=== PATIENT | male | born 2000 | race Caucasian/White ===

== ENCOUNTER → 2023-12-21 08:40 | Outpatient (CLI) | payer BC, SELFPAY ==
--- NOTE | ~2023-12-21 | US_ITS ---
Limited Abdominal Sonogram: Real-time sonographic imaging of the right upper quadrant was performed. Clinical History: Abnormal LFTs Findings: The liver appears normal with no evidence of mass lesion or bile duct dilatation. Main por bradley vein demonstrates normal direction of flow. The gallbladder is well distended, with probable 5 mm gallbladder wall polyp. The common bile duct measures 3 mm. The visualized pancreas, aorta, and IVC are unremarkable. Impression: Probable 5 mm gallbladder wall polyp. Reviewed, dictated and finalized at location . 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
== END ==
PROVIDERS: PCP Nurse Practitioner; Visit Provider Nurse Practitioner
DX: R79.89 Other specified abnormal findings of blood chemistry (principal)
CPT/HCPCS: 76705

== ENCOUNTER 2024-03-30 18:47 | Emergency (ER) | payer BC, SELFPAY ==
[2024-03-30] VITALS (8 sets, daily range): BP systolic 123–176; BP diastolic 43–73; PULSE 74–91; RESP 16–22; TEMP 36.8; O2SAT 97–100
--- NOTE | ~2024-03-30 | XR_ITS ---
EXAMINATION: XR chest 2V DATE: 03/30/2024 19:40 INDICATION: Chest pain. TECHNIQUE: Frontal and lateral views of the chest were obtained. COMPARISON: None. FINDINGS: There is no pneumonia, pleural effusion, or pneumothorax. The heart size is normal. IMPRESSION: 1. No acute cardiopulmonary disease. Reviewed, dictated and finalized at location E.
--- NOTE | 2024-03-30 18:54 | ECG_ITS ---
[facility] [address] Test Date: 2024-03-30 Pat Name: Joselito Rey Department: Room: Gender: M Housekeeper: : 2000 Requested By: Evelio Johnson Order Number: [id number] Radhika MD: Alison Ford M.D. Measurements Intervals [place] Rate: 92 P: 79 AK: 161 QRS: 70 QRSD: 89 T: 0 QT: 321 QTc: 399 Interpretive Statements SINUS RHYTHM WITH FREQUENT VENTRICULAR PREMATURE COMPLEXES MODERATE T-WAVE ABNORMALITY, CONSIDER ANTEROLATERAL ISCHEMIA [-0.1+ mV T WAVE IN V3/V4] No previous ECG available for comparison Electronically Signed On 03-31-2024 12:05:54 CDT by Alison Ford M.D.
[2024-03-30 19:11] LABS: Basophils Absolute Auto 0.1 K/mm3 (0.0-0.1); Basophils Percent Auto 0.7 % (0.2-1.2); Eosinophils Percent Auto 0.4 % (0-4.4); Immature Granulocyte Absolute 0.03 K/mm3 (0.00-0.031); Immature Granulocyte Percent A 0.3 % (0-0.5); Lymphocytes Absolute Auto 1.12 K/mm3 (0.9-3.2); Lymphocytes Percent Auto 12.3 % (18.3-44.2); Mean Corpuscular HGB Conc 33.3 g/dl (32-36); Mean Corpuscular Hemoglobin 30.4 pg (26-34); Mean Corpuscular Volume 91.1 fl (80-100); Mean Platelet Volume 9.7 fl (7.4-10.4); Monocytes Absolute Auto 0.5 K/mm3 (0.1-0.6); Monocytes Percent Auto 5.3 % (2.6-8.5); Neutrophils Absolute Auto 7.4 K/mm3 (1.3-6.7); Platelet Count Result 229 k/mm3 (150-375); Red Blood Count 5.27 M/mm3 (4.6-6.20); Red Cell Distribution Width 13.1 % (11.5-14.5); White Blood Count 9.1 K/mm3 (4.5-10.0)
[2024-03-30] MEDS: ASPIRIN 81 MG CHEWABLE TABLET 324 MG PO (19:14)
[2024-03-30 19:21] LABS: Alanine Aminotransferase 56 U/L (6-50); Albumin Level 4.1 g/dL (3.5-5.1); Alkaline Phosphatase 99 U/L (38-126); Anion Gap 9 mmol/L (4-12); Aspartate Amino Transferase 85 U/L (17-59); Bilirubin,Total 0.6 mg/dL (0.2-1.3); Blood Urea Nitrogen 18 mg/dL (9-20); Calcium 8.5 mg/dL (8.4-10.2); Carbon Dioxide 22 mmol/L (22-30); Chloride 106 mmol/L (98-107); Estimated CRCL calculation 95 ml/min; Estimated Glomerular Filt Rate > 60; Glucose 99 mg/dL (65-110); Lipase 94 U/L (23-300); Potassium 3.9 mmol/L (3.4-5.0); Sodium 137 mmol/L (137-145)
[2024-03-30 19:22] LABS: INR 0.9; Prothrombin Time 12.7 Seconds (11.1-14.7)
--- NOTE | 2024-03-30 19:24 | ED.CHESTPAIN ---
HPI - Chest Pain General Chief Complaint: Chest Pain Stated Complaint: chest pain Time Seen by Provider: 03/30/24 18:55 Source: patient Mode of arrival: ambulatory Limitations: no limitations History of Present Illness HPI narrative: Joselito is a 23-year-old male patient presenting to the ER today with complaints of left-sided chest pain that is intermittent and only last a few seconds. He says the episodes are sharp and stabbing in nature. Does have some associated shortness of breath during the episode. Says the episodes have been occurring frequently since yesterday. Is currently rating his pain 8/10. Pain does not radiate and is back, jaw, or down his arm. Related Data Allergies Allergy/AdvReac Type Severity Reaction Status Date / Time No Known Allergies Allergy Verified 03/30/24 18:53 Review of Systems Review of Systems: Pertinent positives per HPI. Patient denies any fever, chills, rash, headache, visual changes, dizziness, cough, runny nose, sore throat, shortness of breath, palpitations, nausea, vomiting, diarrhea, constipation, abdominal pain, or any urinary issues. PMFSH Comments At the time of my signature, I reviewed and agree with the nursing past medical, surgical, social, and family history. There is no relevant family history pertinent to the patient complaint. Exam Narrative: General: Well-developed, well nourished, in no apparent distress Head: Normocephalic, atraumatic. Cardio: Regular rate and rhythm, s1 and s2 normal, no murmur appreciated. Resp: Clear to auscultation bilaterally, no rhonchi, rales, wheezing or rubs. Extremities: No deformity, no edema, no cyanosis, capillary refill less than 2 seconds, peripheral pulses palpable and strong. Integumentary: [place], warm, and dry, intact without lesion, no rashes. Course Course Emergency Course: Portions of this record may have been created with voice recognition software. Vital Signs Vital signs: Vital Signs Temperature 36.8 C 03/30/24 18:50 Pulse Rate 91 03/30/24 18:50 Respiratory Rate 22 H 03/30/24 18:50 Blood Pressure 163/72 H 03/30/24 18:50 Pulse Oximetry 100 03/30/24 18:50 Oxygen Delivery Room Air 03/30/24 18:50 Temperature 36.8 C 03/30/24 18:50 Pulse Rate 91 03/30/24 18:50 Respiratory Rate 22 H 03/30/24 18:50 Blood Pressure 163/72 H 03/30/24 18:50 Pulse Oximetry 100 03/30/24 19:56 Oxygen Delivery Room Air 03/30/24 19:56 Vital signs reviewed MDM - Chest Pain MDM Narrative Medical decision making narrative: At the time of visit patient is resting comfortably on the exam table. Patient appears to be nontoxic. EKG: EKG shows normal sinus rhythm with frequent PVCs. No ST elevation, depression, or T-wave inversion noted Labs: CBC unremarkable, anti coagulation studies within normal limits chemistry is unremarkable other than an elevated AST and ALT, AST is 85 and ALT is 56, initial troponin was negative. D-dimer was slightly elevated. Offered to do CTA to rule out PE and patient declined-would like to follow-up with his primary care doctor Diagnostics: Chest x-rays negative for any acute cardiopulmonary process Plan: I suspect patient has chest discomfort with frequent PVCs. Heart score is 1. Recommend follow-up with Cardiology and PCP. Supportive measures were discussed with the patient and they voiced understanding discharge instructions and agrees to treatment plan. Return precautions reviewed Differential Diagnosis Differential diagnosis: Likely fracture of rib, pneumothorax, stable angina, unstable angina pectoris, atypical chest pain, st elevation myocardial infarction, costochondritis, chest pain and biliary colic Lab Data 03/30/24 19:02 03/30/24 19:02 Labs: Lab Results 03/30/24 03/30/24 Range/Units 19:02 21:52 WBC 9.1 (4.5-10.0) K/mm3 RBC 5.27 (4.6-6.20) M/mm3 Hgb 16.0 (14.0-18.0) g/dL Hct 48.0 (42.0-52.0) %
[2024-03-30 19:33] LABS: Troponin I < 0.012 ng/mL (0.000-0.034)
--- NOTE | 2024-03-30 19:57 | PC.NURSE ---
Patient states that he is unsure but that he thinks this chest pain could be related to testosterone he uses currently.
--- NOTE | 2024-03-30 21:58 | ECG_ITS ---
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 Measurements Intervals [place] Rate: 73 P: 47 MA: 179 QRS: 58 QRSD: 85 T: 4 QT: 349 QTc: 386 Interpretive Statements SINUS RHYTHM WITH OCCASIONAL VENTRICULAR PREMATURE COMPLEXES ST DEVIATION AND MODERATE T-WAVE ABNORMALITY, CONSIDER ANTERIOR ISCHEMIA [-0.1+ mV T WAVE IN V3/V4] Compared to ECG 03/30/2024 18:57:45 No significant changes Electronically Signed On 03-31-2024 12:06:48 CDT by Alison Ford M.D.
[2024-03-30 22:22] LABS: Troponin I < 0.012 ng/mL (0.000-0.034)
[2024-03-30 22:52] LABS: D Dimer 0.53 ug/mL (<0.48)
--- NOTE | 2024-03-30 23:08 | PC.NURSE ---
this rn assumed care of patient. this rn took patient report from angela yuen.
== END 2024-03-30 23:31 | disposition home or self-care (01) ==
PROVIDERS: Emergency Medicine; Emergency Provider Nurse Practitioner Family; PCP Nurse Practitioner
DX: R07.9 Chest pain, unspecified (principal); R94.31 Abnormal electrocardiogram [ECG] [EKG]
CPT/HCPCS: 36415; 71046; 80053; 83690; 84484; 85025; 85380; 85610; 85730; 93005; 99284; A9270

== ENCOUNTER 2024-04-10 10:39 | Outpatient (CLI) | payer BC, SELFPAY ==
--- NOTE | ~2024-04-10 | US_ITS ---
Abdominal Sonogram: Real-time sonographic imaging of the abdomen was performed. Clinical History: Abnormal LFTs Findings: The liver appears normal with no evidence of mass lesion or bile duct dilatation. Main por bradley vein demonstrates normal direction of flow. The spleen is normal in size without evidence of foca l lesion. The gallbladder is well distended, and demonstrates questionable tiny 2 mm gallbladder wal l polyp. The common bile duct measures 4 mm. The visualized pancreas, aorta, and IVC are unremarkabl e. The right kidney measures 12.1 cm in length and the left kidney measures 11.6 cm. There is no hy dronephrosis or renal calculus. Impression: Possible 2 mm gallbladder wall polyp. Reviewed, dictated and finalized at location M. Impression: Possible 2 mm gallbladder wall polyp.
--- NOTE | ~2024-04-10 | CT_ITS ---
Clinical Indication: Chest pain CT Scan of the Chest with Contrast: Technique: Contiguous sections were acquired throughout the chest after intravenous administration of 100 cc of Omnipaque 350. Dose reduction technique was used on this scan by utilizing automated expos ure control and iterative reconstruction technique. The dose-length product (DLP) was 464.52 mGy-cm. Findings: There is no evidence of any significant mediastinal, hilar or axillary lymphadenopathy. There is no f illing defect in the pulmonary arterial tree to suggest pulmonary embolus. There is no evidence of ao rtic dissection or aneurysm. There is no evidence of pleural or pericardial effusion. The lungs are clear. No pulmonary nodules or infiltrates are noted. Images through the upper abdomen reveal no abnormalities. Impression: No evidence of pulmonary embolus, aortic dissection, or aortic aneurysm. Clear lungs. Reviewed, dictated and finalized at [facility]. Impression: No evidence of pulmonary embolus, aortic dissection, or aortic aneurysm. Clear lungs.
== END 2024-04-10 10:40 ==
LOC: MICIMG 10:39
PROVIDERS: PCP Nurse Practitioner; Visit Provider Nurse Practitioner
DX: R07.9 Chest pain, unspecified (principal); R79.89 Other specified abnormal findings of blood chemistry; K82.4 Cholesterolosis of gallbladder
CPT/HCPCS: 71275; 76700; Q9967

== ENCOUNTER 2025-08-27 09:15 | Emergency (ER) | payer BC, SELFPAY ==
[2025-08-27 09:23] VITALS: BP 120/77; PULSE 66; RESP 16; TEMP 36.9; O2SAT 100
--- NOTE | 2025-08-27 09:42 | ED_ITS ---
HPI - Back Pain/Injury General Chief Complaint: Back Pain/Injury Stated Complaint: Back Pain/Trouble Breathing Time Seen by Provider: 08/27/25 09:42 Source: patient Mode of arrival: ambulatory Limitations: no limitations History of Present Illness HPI Narrative: 24 yo M presents with pain to L mid back with movement. If he sits still, he does not have pain. Was lifting 35lb dumbbell and felt pull to back that caused him to drop the weight. Has not been consistently lifting weights and just getting back into it. Pain to L back worse with certain, turning head to L reproduces pain. No numbness, tingling or weakness. Ambulatory with normal gait. All systems reviewed and negative except as noted above. Related Data Allergies Allergy/AdvReac Type Severity Reaction Status Date / Time No Known Allergies Allergy Verified 08/27/25 09:21 PMFSH Comments At time of signature, agree with nursing past medical, surgical, social and family history. There is no relevant family history pertinent to the presenting complaint. Exam Narrative: GENERAL: This is a well-nourished, well-developed patient, in no apparent distress. HEAD: normocephalic, atraumatic. EYES: PERRL. Sclera clear/white. Vision is grossly intact. EARS: External ears normal NOSE: External nose normal NECK: Neck supple, non-tender without lymphadenopathy, masses or thyromegaly. Normal range of motion. CARDIOVASCULAR: Regular rate and rhythm without murmurs, gallops, or rubs. RESPIRATORY: Clear to auscultation. Breath sounds equal bilaterally. No wheezes, rales, or rhonchi. SKIN: warm, Dry, intact with no suspicious lesions or rash, good texture and turgor. NEURO: awake, alert, and oriented to person, place and time. There were no obvious focal neurologic abnormalities. EXTREMITIES: No joint tenderness, effusion, or edema noted. No calf tenderness. Negative Homans sign bilaterally. BACK: No midline or muscular tenderness. No deformity. Range of motion. Course Course Level of Care: Express Care Visit Vital Signs Vital signs: Vital Signs Temperature 36.9 C 08/27/25 09:23 Pulse Rate 66 08/27/25 09:23 Respiratory Rate 16 08/27/25 09:23 Blood Pressure 120/77 08/27/25 09:23 Pulse Oximetry 100 10/29/25 09:23 Temperature 36.9 C 10/29/25 09:23 Pulse Rate 66 08/27/25 09:23 Respiratory Rate 16 08/27/25 09:23 Blood Pressure 120/77 08/27/25 09:23 Pulse Oximetry 100 08/27/25 09:23 Reviewed MDM - Back Pain/Injury MDM Narrative Medical decision making narrative: Will treat patient for left mid back strain with ibuprofen and methocarbamol. Neuro deficits. Recommend stretching, ice, heat. Differential Diagnosis Differential diagnosis: Likely lumbar radiculopathy, sciatica, strain of lumbar region, thoracic back pain and other (Strain of thoracic region) Discharge Plan Discharge Clinical Impression: Strain of mid-back Qualifiers: Encounter type: initial encounter Qualified Code(s): S29.012A - Strain of muscle and tendon of back wall of thorax, initial encounter Patient Disposition: Home Condition: Stable Instructions: Thoracic Back Strain (ED) Additional Instructions: Take medications as prescribed. Methocarbamol as a muscle relaxant may cause drowsiness. Do not drive while taking this medication. Alternate between ice and heat. Do stretching exercises as tolerated. Follow-up your primary care physician if not improving. Patient Language: Korean Prescriptions: New ibuprofen 800 mg tablet 800 mg PO TID PRN (Reason: pain) Qty: 30 0RF methocarbamol 750 mg tablet 750 mg PO Q8H PRN (Reason: muscle pain/spasm) Qty: 30 0RF Follow-up/Referrals: PHYSICIAN,LOGGING SPECIALIST [Primary Care Provider, Internal Medicine] Time of Disposition: 09:53
== END 2025-08-27 09:57 | disposition home or self-care (01) ==
PROVIDERS: Emergency Provider Nurse Practitioner Family
DX: S29.012A Strain of muscle and tendon of back wall of thorax, initial encounter (principal); X50.0XXA Overexertion from strenuous movement or load, initial encounter
CPT/HCPCS: 99213; G0463